=== PATIENT | male | born 1990 | race Caucasian/White ===

== ENCOUNTER 2016-12-30 19:29 | Emergency (ER) | payer SELFPAY ==
[2016-12-30 19:44] VITALS: RESP 18
[2016-12-30] MEDS ORDERED: ACETAMINOPHEN TAB 500 MG TAB PO STA (19:51)
[2016-12-30] MEDS ORDERED: ONDANSETRON ODT 4 MG TAB PO STA (19:51)
--- NOTE | 2016-12-30 19:54 | ED ---
General Adult HPI - General Chief complaint: Nausea/Vomiting/Diarrhea Stated complaint: Diarrhea/Chills Time Seen by Provider: 12/30/16 19:47 Source: patient, RN notes reviewed Mode of arrival: ambulatory Limitations: no limitations - History of Present Illness Initial comments: This is a 26-year-old male presents with nausea/vomiting and diarrhea that started this morning. Patient also states he's had a fever. Patient states he did not take any Tylenol and Motrin for his fever. Patient denies any cough, congestion, headache or sore throat. Patient denies any sick contacts. Patient denies any abdominal pain, dysuria, hematuria or hematochezia. Patient states he did not get a flu shot this year. Patient denies any recent shortness breath, chest pain, back pain, numbness, tingling, hematuria, headache, or visual changes, or any other complaints. - Related Data Previous Rx's Medication Instructions Recorded Ondansetron Odt [Zofran Odt] 4 mg PO Q12HR 3 Days 12/30/16 Allergies Allergy/AdvReac Type Severity Reaction Status Date / Time orange Allergy Abdominal Verified 12/30/16 20:06 Pain Review of Systems ROS Statement: Those systems with pertinent positive or pertinent negative responses have been documented in the HPI. ROS Other: All systems not noted in ROS Statement are negative. Past Medical History Past Medical History: No Reported History History of Any Multi-Drug Resistant Organisms: None Reported Past Surgical History: No Surgical Hx Reported Past Psychological History: No Psychological Hx Reported Smoking Status: Current every day smoker Past Alcohol Use History: None Reported Past Drug Use History: None Reported General Exam - General Exam Comments Initial Comments: General: The patient is awake and alert, in no distress, and does not appear acutely ill. Eye: Pupils are equal, round and reactive to light, extra-ocular movements are intact. No nystagmus. There is normal conjunctiva bilaterally. No signs of icterus. Ears: TMs pink and pearly with intact cone of light bilaterally. Normal external ear canals Nose: Nasal turbinates pink and moist Mouth and throat: There are moist mucous membranes and no oral lesions. Neck: The neck is supple, there is no tenderness or JVD. Cardiovascular: There is a regular rate and rhythm. No murmur, rub or gallop is appreciated. Respiratory: Lungs are clear to auscultation, respirations are non-labored, breath sounds are equal. No wheezes, stridor, rales, or rhonchi. Gastrointestinal: Soft, non-distended, non-tender abdomen without masses or organomegaly noted. There is no rebound or guarding present. No CVA tenderness. Bowel sounds are unremarkable. Musculoskeletal: Normal ROM, no tenderness. Strength 5/5. Sensation intact. Radial pulses equal bilaterally 2+. Neurological: A&O x 3. CN II-XII intact, There are no obvious motor or sensory deficits. Coordination appears grossly intact. Speech is normal. Skin: Skin is warm and dry and no rashes or lesions are noted. Psychiatric: Cooperative, appropriate mood & affect, normal judgment. Limitations: no limitations Course Vital Signs 12/30/16 12/30/16 19:41 22:59 Temperature 101.3 F H 102.9 F H Pulse Rate 102 H Respiratory 18 Rate Blood Pressure 130/77 O2 Sat by Pulse 99 Oximetry Medical Decision Making - Medical Decision Making This is a 18-year-old male presents with nausea/vomiting/diarrhea that started this morning. Patient is not septic. On physical exam patient is well- appearing and afebrile in the EC. Patient's abdomen is soft, nondistended and nontender. No rebound or guarding. Patient is given Zofran and Tylenol in the EC. Influenza was checked and came back negative. A KUB was done and reviewed showing: Nonacute abdomen. Report by Dr. Stevens. At this time basic labs were drawn including a UA. Labs and UA are within normal limits. I discussed gastroenteritis with the patient. Patient states she is feeling better did not have any episodes of emesis or diarrhea in the EC today. I reexamined the patient's abdomen and he still has no abdominal pain. I discussed that he should drink plenty of fluids. I discussed that patient will be sent home with a prescription for Zofran. I discussed continuation of Tylenol and Motrin or any pain or fever. I discussed return parameters. Patient was given Motrin before discharge. Discussed that patient should follow up with PCP in one to 2 days or return to the EC for any worsening symptoms or for any further concerns. Patient was receptive to this plan and patient will be discharged home. I discussed this case with attending physician Dr. Madrid who agrees the plan as stated above. - Lab Data Result diagrams: 12/30/16 21:47 12/30/16 21:47 Lab Results 12/30/16 12/30/16 12/30/16 Range/Units 20:05 21:47 21:47 WBC 7.4 (3.8-10.6) k/uL RBC 5.10 (4.30-5.90) m/uL Hgb 16.4 (13.0-17.5) gm/dL Hct 47.1 (39.0-53.0) % MCV 92.4 (80.0-100.0) fL MCH 32.1 (25.0-35.0) pg MCHC 34.8 (31.0-37.0) g/dL RDW 14.7 (11.5-15.5) % Plt Count 131 L (150-450) k/uL Neutrophils % 78 % Lymphocytes % 14 % Monocytes % 4 % Eosinophils % 2 % Basophils % 1 % Neutrophils # 5.8 (1.3-7.7) k/uL Lymphocytes # 1.0 (1.0-4.8) k/uL Monocytes # 0.3 (0-1.0) k/uL Eosinophils # 0.2 (0-0.7) k/uL Basophils # 0.0 (0-0.2) k/uL Sodium 137 (137-145) mmol/L Potassium 3.5 (3.5-5.1) mmol/L Chloride 103 (98-107) mmol/L Carbon Dioxide 21 L (22-30) mmol/L Anion Gap 13 mmol/L BUN 7 L (9-20) mg/dL Creatinine 0.89 (0.66-1.25) mg/dL Est GFR (MDRD) Af Amer >60 (>60 ml/min/1.73 sqM) Est GFR (MDRD) Non-Af >60 (>60 ml/min/1.73 sqM) Glucose 99 (74-99) mg/dL Calcium 8.7 (8.4-10.2) mg/dL Total Bilirubin 0.7 (0.2-1.3) mg/dL AST 26 (17-59) U/L ALT 46 (21-72) U/L Alkaline Phosphatase 61 (38-126) U/L Total Protein 6.3 (6.3-8.2) g/dL Albumin 3.8 (3.5-5.0) g/dL Amylase 49 (30-110) U/L Lipase 73 (23-300) U/L Urine Color Urine Appearance (Clear) Urine pH (5.0-8.0) Ur Specific [place] (1.001-1.035) Urine Protein (Negative) Urine Glucose (UA) (Negative) Urine Ketones (Negative) Urine Blood (Negative) Urine Nitrite (Negative) Urine Bilirubin (Negative) Urine Urobilinogen (<2.0) mg/dL Ur Leukocyte Esterase (Negative) Urine RBC (0-5) /hpf Urine WBC (0-5) /hpf Ur Squamous Epith Cells (0-4) /hpf Urine Mucus (None) /hpf Influenza Type A RNA Not Detected (Not Detectd) Influenza Type B (PCR) Not Detected (Not Detectd) 12/30/16 Range/Units 22:00 WBC (3.8-10.6) k/uL RBC (4.30-5.90) m/uL Hgb (13.0-17.5) gm/dL Hct (39.0-53.0) % MCV (80.0-100.0) fL MCH (25.0-35.0) pg MCHC (31.0-37.0) g/dL RDW (11.5-15.5) % Plt Count (150-450) k/uL Neutrophils % % Lymphocytes % % Monocytes % % Eosinophils % % Basophils % % Neutrophils # (1.3-7.7) k/uL Lymphocytes # (1.0-4.8) k/uL Monocytes # (0-1.0) k/uL Eosinophils # (0-0.7) k/uL Basophils # (0-0.2) k/uL Sodium (137-145) mmol/L Potassium (3.5-5.1) mmol/L Chloride (98-107) mmol/L Carbon Dioxide (22-30) mmol/L Anion Gap mmol/L BUN (9-20) mg/dL Creatinine (0.66-1.25) mg/dL Est GFR (MDRD) Af Amer (>60 ml/min/1.73 sqM) Est GFR (MDRD) Non-Af (>60 ml/min/1.73 sqM) Glucose (74-99) mg/dL Calcium (8.4-10.2) mg/dL Total Bilirubin (0.2-1.3) mg/dL AST (17-59) U/L ALT (21-72) U/L Alkaline Phosphatase (38-126) U/L Total Protein (6.3-8.2) g/dL Albumin (3.5-5.0) g/dL Amylase (30-110) U/L Lipase (23-300) U/L Urine Color Yellow Urine Appearance Clear (Clear) Urine pH 5.5 (5.0-8.0) Ur Specific [place] 1.029 (1.001-1.035) Urine Protein 1+ H (Negative) Urine Glucose (UA) Negative (Negative) Urine Ketones Negative (Negative) Urine Blood Negative (Negative) Urine Nitrite Negative (Negative) Urine Bilirubin Negative (Negative) Urine Urobilinogen 2.0 (<2.0) mg/dL Ur Leukocyte Esterase Negative (Negative) Urine RBC 1 (0-5) /hpf Urine WBC 1 (0-5) /hpf Ur Squamous Epith Cells 1 (0-4) /hpf Urine Mucus Rare H (None) /hpf Influenza Type A RNA (Not Detectd) Influenza Type B (PCR) (Not Detectd) Disposition Clinical Impression: Gastroenteritis Disposition: HOME SELF-CARE Condition: Good Instructions: Acute Nausea and Vomiting (ED), Acute Diarrhea (ED) Additional Instructions: Please be sure to drink plenty of fluids. Please use Zofran as prescribed. Please continue Tylenol and Motrin for any pain or fever symptoms. Please use medication as discussed. Please follow-up with family doctor in the next 2 days of symptoms have not improved. Please return to emergency room if the symptoms increase or worsen or for any other concerns. Prescriptions: Ondansetron Odt [Zofran Odt] 4 mg PO Q12HR 3 Days Referrals: Kevyn Lea MD [Primary Care Provider] - 1-2 days Time of Disposition: 22:57
--- NOTE | 2016-12-30 20:31 | XR ---
EXAMINATION TYPE: XR KUB DATE OF EXAM: 12/30/2016 8:26 PM COMPARISON: NONE HISTORY: Nausea and vomiting TECHNIQUE: 2 views FINDINGS: There is no sign of intestinal obstruction or pneumoperitoneum. Fecal pattern is normal. Th ere is no sign of a mass. Lung bases are clear. There are no pathologic calcifications over the kidne ys. Bony structures are intact. IMPRESSION: Nonacute abdomen.
[2016-12-30] MEDS ORDERED: SODIUM CHLORIDE 0.9% 1,000 ML IV ONE (21:28)
[2016-12-30] MEDS ORDERED: PANTOPRAZOLE 40 MG/10 ML VIAL IVP STA (21:29)
[2016-12-30 22:11] LABS: Basophils % (A) 1 %; CH 31.6; CHCM 34.3; Eosinophils # (A) 0.2 k/uL (0-0.7); Eosinophils % (A) 2 %; HCT 47.1 % (39.0-53.0); HDW 2.58; HGB 16.4 gm/dL (13.0-17.5); Luc % (Auto) 1; Lymphocytes % (A) 14 %; MCH 32.1 pg (25.0-35.0); MCHC 34.8 g/dL (31.0-37.0); MCV 92.4 fL (80.0-100.0); Mean Platelet Volume 8.7; Monocytes # (A) 0.3 k/uL (0-1.0); Monocytes % (A) 4 %; Neutrophils # (A) 5.8 k/uL (1.3-7.7); Neutrophils % (A) 78 %; RDW 14.7 % (11.5-15.5); WBC 7.4 k/uL (3.8-10.6)
[2016-12-30 22:18] LABS: ALT 46 U/L (21-72); AST 26 U/L (17-59); Alkaline Phosphatase 61 U/L (38-126); Amylase 49 U/L (30-110); Anion Gap 13 mmol/L; Blood Urea Nitrogen 7 mg/dL (9-20); Calcium 8.7 mg/dL (8.4-10.2); Carbon Dioxide 21 mmol/L (22-30); Chloride 103 mmol/L (98-107); Glucose 99 mg/dL (74-99); Non-African American GFR(MDRD) >60 (>60 ml/min/1.73 sqM); Potassium 3.5 mmol/L (3.5-5.1); Sodium 137 mmol/L (137-145); Total Bilirubin 0.7 mg/dL (0.2-1.3); Total Protein 6.3 g/dL (6.3-8.2)
[2016-12-30 22:34] LABS: Appearance,Urine Clear (Clear); Bilirubin,Urine Negative (Negative); Glucose,Urine (UA) Negative (Negative); Ketones,Urine Negative (Negative); Leukocyte Esterase,Urine Negative (Negative); Mucus,Urine Rare /hpf; Nitrite,Urine Negative (Negative); PH, Urine 5.5 (5.0-8.0); Particle Count 5790; Protein,Urine 1+ (Negative); RBC,Urine 1 /hpf (0-5); Specific Gravity,Urine 1.029 (1.001-1.035); Squamous Epithelial Cell,Urine 1 /hpf (0-4); UA Billing (MACRO vs. MICRO) MICRO; WBC,Urine 1 /hpf (0-5)
[2016-12-30] MEDS ORDERED: IBUPROFEN 400 MG TAB PO STA (23:01)
[2016-12-30 23:22] VITALS: BP 127/70; PULSE 108; TEMP 102.8
== END 2016-12-30 23:21 | disposition home or self-care (01) ==
LOC: EC 19:29
DX: K52.9 Noninfective gastroenteritis and colitis, unspecified (principal); R50.9 Fever, unspecified; F17.200 Nicotine dependence, unspecified, uncomplicated; Z91.018 Allergy to other foods
CPT/HCPCS: 36415; 80053; 82150; 83690; 85025; 81001; 87086; 87502; 74000; 99284; 96374; 96361; C9113

== ENCOUNTER 2019-02-23 12:29 | Emergency (ER) | payer OTHER ==
[2019-02-23 14:26] LABS: Basophils # (A) 0.1 k/uL (0-0.2); Basophils % (A) 1 %; Eosinophils # (A) 0.4 k/uL (0-0.7); Eosinophils % (A) 5 %; HGB 15.5 gm/dL (13.0-17.5); Lymphocytes # (A) 2.7 k/uL (1.0-4.8); Lymphocytes % (A) 31 %; MCH 30.5 pg (25.0-35.0); MCV 92.7 fL (80.0-100.0); Mean Platelet Volume 8.9; Monocytes # (A) 0.5 k/uL (0-1.0); Monocytes % (A) 5 %; Neutrophils % (A) 57 %; Platelet Count 154 k/uL (150-450); RBC 5.07 m/uL (4.30-5.90); RDW 15.5 % (11.5-15.5); WBC 8.8 k/uL (3.8-10.6)
--- NOTE | 2019-02-23 14:38 | ED ---
Chest Pain HPI - General Chief Complaint: Chest Pain Stated Complaint: chest pain/SOB Time Seen by Provider: 02/23/19 13:37 Source: patient, RN notes reviewed Mode of arrival: ambulatory Limitations: no limitations - History of Present Illness Initial Comments: 28-year-old male Patient was restarted today with onset of right-sided muscle skeletal Chest pain. He states it happened was at work, worse with certain movements. Patient reports that he has no cough, shortness of breath. He states that he has no cardiac history ad denies significant past medical history. - Related Data Previous Rx's Medication Instructions Recorded Ibuprofen [Motrin] 800 mg PO TID #30 tab 02/23/19 Allergies Allergy/AdvReac Type Severity Reaction Status Date / Time orange AdvReac Abdominal Verified 02/23/19 13:25 Pain Review of Systems ROS Statement: Those systems with pertinent positive or pertinent negative responses have been documented in the HPI. ROS Other: All systems not noted in ROS Statement are negative. Constitutional: Denies: fever, chills Eyes: Reports: eye pain ENT: Denies: throat pain Respiratory: Denies: cough, dyspnea Cardiovascular: Reports: chest pain. Denies: palpitations Endocrine: Denies: fatigue Past Medical History Past Medical History: No Reported History History of Any Multi-Drug Resistant Organisms: None Reported Past Surgical History: No Surgical Hx Reported Past Psychological History: No Psychological Hx Reported Smoking Status: Current every day smoker Past Alcohol Use History: None Reported Past Drug Use History: Marijuana General Exam - General Exam Comments Initial Comments: This is a 28-year-old male. Alert and oriented. No significant distress. Limitations: no limitations General appearance: alert, in no apparent distress Head exam: Present: atraumatic, normocephalic, normal inspection Eye exam: Present: normal appearance, PERRL, EOMI. Absent: scleral icterus, conjunctival injection, periorbital swelling ENT exam: Present: normal exam, mucous membranes moist Neck exam: Present: normal inspection. Absent: tenderness, meningismus, lymphadenopathy Respiratory exam: Present: normal lung sounds bilaterally, other (tender to palpation over R ribs. ). Absent: respiratory distress, wheezes, rales, rhonchi, stridor Cardiovascular Exam: Present: regular rate, normal rhythm, normal heart sounds. Absent: systolic murmur, diastolic murmur, rubs, gallop, clicks GI/Abdominal exam: Present: soft, normal bowel sounds. Absent: distended, tenderness, guarding, rebound, rigid Extremities exam: Present: normal inspection, full ROM, normal capillary refill. Absent: tenderness, pedal edema, joint swelling, calf tenderness Back exam: Present: normal inspection Neurological exam: Present: alert, oriented X3, CN II-XII intact Psychiatric exam: Present: normal affect, normal mood Skin exam: Present: warm, dry, intact, normal color. Absent: rash Course Vital Signs 02/23/19 02/23/19 02/23/19 13:17 15:00 15:30 Temperature 98.4 F Pulse Rate 79 51 L 65 Respiratory 20 18 17 Rate Blood Pressure 138/78 126/102 131/92 O2 Sat by Pulse 100 Oximetry 02/23/19 15:45 Temperature 97.7 F Pulse Rate 64 Respiratory 18 Rate Blood Pressure 139/92 O2 Sat by Pulse 100 Oximetry Chest Pain MDM - MDM 28 year male presents today with complaints of right chest wall pain. Patient has no previous cardaic history, denies cough. Patient has reproducible muscloskeletal chest pain. patient labs were reviewed and unremarkable, EKG has no acute changes. CXR is normal. Patient will be DC with motrina dn tylenol, advised PCP follow up and return paramters discussed. EKG performed at is on Zestril sinus arrhythmia, ventricular rate 64 bpm. Intervals 206 most seconds. Estrogen 84 ms. QTc is 410/422 ms. Disposition Clinical Impression: Chest wall pain Disposition: HOME SELF-CARE Condition: Good Instructions (If sedation given, give patient instructions): Costochondritis (ED) Additional Instructions: Patient has a take Motrin and Tylenol. Follow-up with PCP. Return to emergency department if any alarming signs or symptoms occur. Prescriptions: Ibuprofen [Motrin] 800 mg PO TID #30 tab Is patient prescribed a controlled substance at d/c from ED?: No Referrals: Kevyn Lea MD [Primary Care Provider] - 1-2 days Time of Disposition: 15:24
[2019-02-23 14:46] LABS: D-Dimer 0.19 mg/L FEU (<0.60); INR 0.9 (<1.2); Partial Thromboplastin Time 25.6 sec (22.0-30.0); Prothrombin Time 10.1 sec (9.0-12.0)
[2019-02-23 15:01] LABS: ALT 33 U/L (21-72); AST 22 U/L (17-59); Albumin 4.4 g/dL (3.5-5.0); Alkaline Phosphatase 79 U/L (38-126); Anion Gap 6 mmol/L; Blood Urea Nitrogen 9 mg/dL (9-20); Calcium 9.5 mg/dL (8.4-10.2); Carbon Dioxide 26 mmol/L (22-30); Chloride 109 mmol/L (98-107); Glucose 86 mg/dL (74-99); Potassium 4.2 mmol/L (3.5-5.1); Sodium 141 mmol/L (137-145); Total Bilirubin 0.5 mg/dL (0.2-1.3); Total Protein 7.1 g/dL (6.3-8.2)
--- NOTE | 2019-02-23 15:01 | XR ---
EXAMINATION TYPE: XR chest 2V DATE OF EXAM: 02/23/2019 COMPARISON: None HISTORY: Chest pain TECHNIQUE: Frontal and lateral views of the chest are obtained. FINDINGS: There is no focal air space opacity, pleural effusion, or pneumothorax seen. The cardiac silhouette size is within normal limits. The osseous structures are intact. IMPRESSION: No acute cardiopulmonary process.
[2019-02-23] MEDS ORDERED: KETOROLAC 30 MG/ML 1 ML VIAL IVP STA (15:25)
[2019-02-23 15:48] VITALS: BP 139/92; PULSE 64; RESP 18; TEMP 97.7
== END 2019-02-23 15:51 | disposition home or self-care (01) ==
LOC: EC 12:29
DX: R07.89 Other chest pain (principal); I49.8 Other specified cardiac arrhythmias; F17.200 Nicotine dependence, unspecified, uncomplicated; Z91.018 Allergy to other foods
CPT/HCPCS: 36415; 93005; 85379; 80053; 83735; 84484; 85025; 85610; 85730; 71046; 99284; 96374; J1885

== ENCOUNTER 2019-03-27 23:57 | Emergency (ER) | payer OTHER ==
[2019-03-28 00:18] VITALS: BP 126/80; PULSE 79; RESP 18; TEMP 98.4
[2019-03-28] MEDS ORDERED: FLUORESCEIN STRIPS 1 MG STRIP LEFT EYE ONE (00:24)
[2019-03-28] MEDS ORDERED: PROPARACAINE 0.5% OPHTH DROPS 15 ML BTL LEFT EYE STA (00:24)
[2019-03-28] MEDS ORDERED: ERYTHROMYCIN 5 MG/GM OPHTH OINT 3.5 GM TUBE RIGHT EYE STA (00:44)
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
== END 2019-03-28 01:07 | disposition home or self-care (01) ==
LOC: EC 23:57
DX: S05.01XA Injury of conjunctiva and corneal abrasion without foreign body, right eye, initial encounter (principal); F17.200 Nicotine dependence, unspecified, uncomplicated; Z91.018 Allergy to other foods; Y93.89 Activity, other specified
CPT/HCPCS: 99283